=== PATIENT | female | born 2000 | race Caucasian/White ===

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

== ENCOUNTER 2019-05-09 22:28 | Emergency (ER) | payer BC ==
[2019-05-09 22:38] VITALS: RESP 18; TEMP 98.3
[2019-05-09] MEDS ORDERED: IPRATROPIUM-ALBUTEROL 3 ML NEB INHALATION STA (23:16)
--- NOTE | 2019-05-09 23:26 | ED ---
General Adult HPI - General Source: patient, RN notes reviewed Mode of arrival: ambulatory Limitations: no limitations <Johnny Corrales - Last Filed: 05/10/19 00:28> <Selina Ballard - Last Filed: 05/10/19 23:23> - General Chief complaint: Upper Respiratory Infection Stated complaint: Congested Time Seen by Provider: 05/09/19 22:56 - History of Present Illness Initial comments: 18-year-old female presents to the emergency department for a chief complaint of cough and soreness of breath. Patient had sinus congestion and cough yesterday. States that today the congestion has settled in her chest. States she feels like she cannot take a deep breath. She denies chest pain. admits to smoking marijuana, denies cigarette smoking. Denies history of asthma.Patient has no other complaints at this time including chest pain, abdominal pain, nausea or vomiting, headache, or visual changes. (Johnny Corrales) - Related Data Home Medications Medication Instructions Recorded Confirmed Cranberry Fruit Concentrate 450 mg PO DAILY 03/08/18 03/08/18 [Cranberry] Previous Rx's Medication Instructions Recorded Ondansetron Odt [Zofran ODT] 4 mg PO Q8HR PRN #10 tab 03/08/18 Promethazine 6.25MG/5Ml [Phenergan 5 ml PO Q4HR PRN #120 ml 03/08/18 Syrup] Albuterol Inhaler [Ventolin Hfa 1 - 2 puff INHALATION Q4-6H PRN #1 05/10/19 Inhaler] inhaler predniSONE 50 mg PO DAILY #5 tablet 05/10/19 Allergies Allergy/AdvReac Type Severity Reaction Status Date / Time No Known Allergies Allergy Verified 05/09/19 22:35 Review of Systems ROS Other: All systems not noted in ROS Statement are negative. <Johnny Corrales - Last Filed: 05/10/19 00:28> ROS Other: All systems not noted in ROS Statement are negative. <Selina Ballard - Last Filed: 05/10/19 23:23> ROS Statement: Those systems with pertinent positive or pertinent negative responses have been documented in the HPI. Past Medical History Past Medical History: No Reported History History of Any Multi-Drug Resistant Organisms: None Reported Past Surgical History: No Surgical Hx Reported Past Psychological History: No Psychological Hx Reported Smoking Status: Never smoker Past Alcohol Use History: None Reported Past Drug Use History: Marijuana <Johnny Corrales - Last Filed: 05/10/19 00:28> General Exam Limitations: no limitations General appearance: alert, in no apparent distress Head exam: Present: atraumatic, normocephalic, normal inspection Eye exam: Present: normal appearance, PERRL, EOMI. Absent: scleral icterus, conjunctival injection, periorbital swelling ENT exam: Present: normal exam, normal oropharynx, mucous membranes moist, normal external ear exam Neck exam: Present: normal inspection, full ROM. Absent: tenderness, meningismus, lymphadenopathy Respiratory exam: Present: wheezes (wheezing noted bilaterally throughout the lung louis). Absent: respiratory distress, rales, rhonchi, stridor, accessory muscle use Cardiovascular Exam: Present: regular rate, normal rhythm, normal heart sounds. Absent: systolic murmur, diastolic murmur, rubs, gallop, clicks GI/Abdominal exam: Present: soft, normal bowel sounds. Absent: distended, tenderness, guarding, rebound, rigid Neurological exam: Present: alert <Johnny Corrales - Last Filed: 05/10/19 00:28> Course Vital Signs 05/09/19 05/09/19 05/09/19 22:35 23:38 23:47 Temperature 98.3 F Pulse Rate 99 96 96 Respiratory 18 Rate Blood Pressure 103/70 O2 Sat by Pulse 98 Oximetry 05/10/19 05/10/19 05/10/19 00:23 00:32 00:52 Temperature Pulse Rate 107 H 107 H 95 Respiratory 18 Rate Blood Pressure 104/80 O2 Sat by Pulse 98 Oximetry Procedures - Smoking Cessation Time Spent Discussing Smoking Cessation w/Patient (Minutes): 3 Patient Acknowledges Need for Cessation: Yes <Johnny Corrales - Last Filed: 05/10/19 00:28> Medical Decision Making <Johnny Corrales - Last Filed: 05/10/19 00:28> <Selina Ballard - Last Filed: 05/10/19 23:23> - Medical Decision Making Patient presents for shortness of breath. Developed cough and sinus congestion yesterday. Vitals are stable. Patient is 98% on room air. She does have significant wheezing noted bilaterally. Denies chest pain. Urine was obtained to rule out which was negative. Chest x-ray shows a normal chest. She was given steroids and breathing treatment. DuoNeb did help with her symptoms, she was given another before discharge. She'll be discharged home with prednisone as well as inhaler. She will follow up with primary care in 1-2 days. Discussed return parameters with patient. (Johnny Corrales) I was available for consultation in the emergency department. The history and physical exam were done by the midlevel provider. I was consulted for this patients care. I reviewed the case with the midlevel provider and based on their presentation of the patient, I agree with the assessment, medical decision making and plan of care as documented. Chart was dictated using Mango-[employer]ate dictation software. Attempts were made to correct any dictation errors however some typographical errors may persist. (Selina Ballard) - Lab Data Lab Results 05/09/19 05/09/19 Range/Units 23:25 23:25 Urine Color Yellow Urine Appearance Clear (Clear) Urine pH 6.0 (5.0-8.0) Ur Specific [place] 1.033 (1.001-1.035) Urine Protein Trace H (Negative) Urine Glucose (UA) Negative (Negative) Urine Ketones Negative (Negative) Urine Blood Trace H (Negative) Urine Nitrite Negative (Negative) Urine Bilirubin Negative (Negative) Urine Urobilinogen 2.0 (<2.0) mg/dL Ur Leukocyte Esterase Trace H (Negative) Urine RBC 4 (0-5) /hpf Urine WBC 2 (0-5) /hpf Ur Squamous Epith Cells 2 (0-4) /hpf Urine Bacteria Rare H (None) /hpf Urine Mucus Moderate H (None) /hpf Urine HCG, Qual Not Detected (Not Detectd) Disposition Is patient prescribed a controlled substance at d/c from ED?: No Time of Disposition: 00:29 <Johnny Corrales - Last Filed: 05/10/19 00:28> <Selina Ballard - Last Filed: 05/10/19 23:23> Clinical Impression: Cough Disposition: HOME SELF-CARE Condition: Good Instructions (If sedation given, give patient instructions): Acute Cough (ED), Wheezing (ED) Additional Instructions: Take steroid as directed. Use inhaler as needed. follow-up with primary care in 1-2 days for recheck. If you have worsening symptoms or increased shortness of breath return to the emergency department. Prescriptions: predniSONE 50 mg PO DAILY #5 tablet Albuterol Inhaler [Ventolin Hfa Inhaler] 1 - 2 puff INHALATION Q4-6H PRN #1 inhaler PRN Reason: Shortness Of Breath Referrals: Alfonso Sy DO [Primary Care Provider] - 1-2 days
[2019-05-09 23:38] LABS: Appearance,Urine Clear (Clear); Bacteria,Urine Rare /hpf; Bilirubin,Urine Negative (Negative); Blood,Urine Trace (Negative); Color,Urine Yellow; Glucose,Urine (UA) Negative (Negative); Ketones,Urine Negative (Negative); Leukocyte Esterase,Urine Trace (Negative); Mucus,Urine Moderate /hpf; Nitrite,Urine Negative (Negative); Protein,Urine Trace (Negative); RBC,Urine 4 /hpf (0-5); Specific Gravity,Urine 1.033 (1.001-1.035); Squamous Epithelial Cell,Urine 2 /hpf (0-4); WBC,Urine 2 /hpf (0-5)
--- NOTE | 2019-05-09 23:46 | XR ---
EXAMINATION TYPE: XR chest 2V DATE OF EXAM: 05/09/2019 COMPARISON: 03/17/2017 HISTORY: Chest pain TECHNIQUE: 2 views FINDINGS: Heart and mediastinum are normal. Lungs are clear. Diaphragm is normal. Bony thorax appears normal. IMPRESSION: Normal chest. No change
[2019-05-10] MEDS ORDERED: methylPREDNISolone SOD SUCCI 125 MG/2 ML VIAL IM ONE (00:14)
[2019-05-10] MEDS ORDERED: IPRATROPIUM-ALBUTEROL 3 ML NEB INHALATION STA (00:17)
[2019-05-10 00:53] VITALS: BP 104/80; PULSE 95
== END 2019-05-10 00:53 | disposition home or self-care (01) ==
LOC: EC 22:28
DX: R05 Cough (principal); R09.81 Nasal congestion; R06.02 Shortness of breath; R06.2 Wheezing; F12.90 Cannabis use, unspecified, uncomplicated; Z71.6 Tobacco abuse counseling
CPT/HCPCS: 94640 ×2; 81001; 81025; 71046; 96372; 99284; J2930

== ENCOUNTER 2019-05-11 22:12 | Emergency (ER) | payer BC ==
[2019-05-11 22:25] VITALS: BP 129/60; TEMP 98.5
[2019-05-11] MEDS ORDERED: guaiFENesin 600 MG TABLET.ER PO STA (22:43)
[2019-05-11] MEDS ORDERED: IPRATROPIUM-ALBUTEROL 3 ML NEB INHALATION STA (22:43)
--- NOTE | 2019-05-11 22:53 | ED ---
General Adult HPI - General Chief complaint: Upper Respiratory Infection Stated complaint: Congested Time Seen by Provider: 05/11/19 22:31 Source: patient, RN notes reviewed Mode of arrival: ambulatory Limitations: no limitations - History of Present Illness Initial comments: 18-year-old female presents to the emergency department for recheck. Patient is complaining of cough for the past 3 or 4 days associated with SOB. She was seen here in the emergency department 2 days ago by myself. She did have significant wheezing at that time and had improvement after 2 DuoNeb's and steroids. Chest x-ray was negative for pneumonia. Patient states that she is progressively feeling better however her discharge paperwork said she needed to follow-up in one to 2 days. She cannot get into her doctor so went to [email or web address]. At [facility] she was told she needed to be seen in the emergency department due to wheezing. Patient states that upon arrival to the emergency department she feels fine. She was given a DuoNeb at the urgent care and she thinks that may have helped. She denies chest pain but does state her chest feels congested. Patient has no other complaints at this time including chest pain, abdominal pain, nausea or vomiting, headache, or visual changes. - Related Data Home Medications Medication Instructions Recorded Confirmed Cranberry Fruit Concentrate 450 mg PO DAILY 03/08/18 03/08/18 [Cranberry] Previous Rx's Medication Instructions Recorded Ondansetron Odt [Zofran ODT] 4 mg PO Q8HR PRN #10 tab 03/08/18 Promethazine 6.25MG/5Ml [Phenergan 5 ml PO Q4HR PRN #120 ml 03/08/18 Syrup] Albuterol Inhaler [Ventolin Hfa 1 - 2 puff INHALATION Q4-6H PRN #1 05/10/19 Inhaler] inhaler predniSONE 50 mg PO DAILY #5 tablet 05/10/19 Allergies Allergy/AdvReac Type Severity Reaction Status Date / Time No Known Allergies Allergy Verified 05/11/19 22:25 Review of Systems ROS Statement: Those systems with pertinent positive or pertinent negative responses have been documented in the HPI. ROS Other: All systems not noted in ROS Statement are negative. Past Medical History Past Medical History: No Reported History History of Any Multi-Drug Resistant Organisms: None Reported Past Surgical History: No Surgical Hx Reported Past Psychological History: No Psychological Hx Reported Smoking Status: Never smoker Past Alcohol Use History: None Reported Past Drug Use History: Marijuana General Exam Limitations: no limitations General appearance: alert, in no apparent distress Head exam: Present: atraumatic, normocephalic, normal inspection Eye exam: Present: normal appearance, PERRL, EOMI. Absent: scleral icterus, conjunctival injection, periorbital swelling ENT exam: Present: normal exam, mucous membranes moist Neck exam: Present: normal inspection, full ROM. Absent: tenderness, men ingismus, lymphadenopathy Respiratory exam: Present: wheezes (mild wheezing noted throughout lung louis). Absent: respiratory distress, rales, rhonchi, stridor, accessory muscle use Cardiovascular Exam: Present: regular rate, normal rhythm, normal heart sounds. Absent: systolic murmur, diastolic murmur, rubs, gallop, clicks Neurological exam: Present: alert Course Vital Signs 05/11/19 05/11/19 12 22:19 23:01 23:10 Temperature 98.5 F Pulse Rate 103 H 83 Respiratory 16 22 Rate Blood Pressure 129/60 O2 Sat by Pulse 99 Oximetry 05/11/19 23:21 Temperature Pulse Rate 93 Respiratory Rate Blood Pressure O2 Sat by Pulse Oximetry Medical Decision Making - Medical Decision Making patient is mildly tachycardic on presentation but did just receive albuterol tr eatment prior to arrival. Tachycardia likely secondary to treatment. She is 99% on room air. Lungs do show mild wheezing bilaterally however patient is not in any respiratory distress whatsoever. Patient was given another breathing treatment here in the emergency department which did improve her symptoms. he has been taking her steroids as directed. Patient feels her chest is still congested so will be started on Mucinex as well.She will follow up with primary care. she'll return here if he has any worsening symptoms. Disposition Clinical Impression: Cough Disposition: HOME SELF-CARE Condition: Good Instructions (If sedation given, give patient instructions): Acute Cough (ED), Wheezing (ED) Additional Instructions: Please continue steroids as directed. Use inhaler as needed. Follow-up with primary care when possible. return to the emergency department if you have any worsening symptoms. Is patient prescribed a controlled substance at d/c from ED?: No Referrals: Alfonso Sy DO [Primary Care Provider] - 1-2 days Time of Disposition: 23:49
[2019-05-11 23:04] VITALS: RESP 22
[2019-05-11 23:22] VITALS: PULSE 93
== END 2019-05-11 23:45 | disposition home or self-care (01) ==
LOC: EC 22:12
DX: R05 Cough (principal); R06.02 Shortness of breath; R09.89 Other specified symptoms and signs involving the circulatory and respiratory systems; R00.0 Tachycardia, unspecified; R06.2 Wheezing
CPT/HCPCS: 94640; 99283

== ENCOUNTER 2020-01-07 15:51 | Emergency (ER) | payer BC ==
[2020-01-07 16:12] VITALS: RESP 18
[2020-01-07] MEDS ORDERED: SODIUM CHLORIDE 0.9% 1,000 ML IV STA (16:13)
--- NOTE | 2020-01-07 16:38 | ED ---
Nausea/Vomiting/Diarrhea HPI - General Chief complaint: Nausea/Vomiting/Diarrhea Stated complaint: Vomiting Time Seen by Provider: 01/07/20 16:01 Source: patient Mode of arrival: ambulatory Limitations: no limitations - History of Present Illness Initial comments: Patient is a 19-year-old female presenting to the emergency room with a chief complaint of nausea vomiting diarrhea. Patient states about 3 weeks ago she has developed nausea vomiting diarrhea. Patient states the nausea and vomiting is usually the first thing when she wakes up which then subsides throughout the day. Patient states she is also having loose stools for around same time. She denies any abdominal pain except for a heartburn-like sensation when she is vomiting. Denies increased urgency frequency or dysuria. However, she does report a thick white discharge with a foul odor. Patient is not concerned for STDs although she is sexually active.. Denies any back pain chest pain shortness of breath. Denies any night sweats fevers or chills. Denies any coughing, rhinorrhea, otalgia or sore throat. Denies taking medication to alleviate the symptoms. States she is not . She does take oral contraceptives and typically has her menstrual period every 3 months. - Related Data Home Medications Medication Instructions Recorded Confirmed Cranberry Fruit Concentrate 450 mg PO DAILY 03/08/18 03/08/18 [Cranberry] Previous Rx's Medication Instructions Recorded Ondansetron Odt [Zofran ODT] 4 mg PO Q8HR PRN #10 tab 03/08/18 Promethazine 6.25MG/5Ml [Phenergan 5 ml PO Q4HR PRN #120 ml 03/08/18 Syrup] Albuterol Inhaler (Mhu) [Ventolin 1 - 2 puff INHALATION Q4-6H PRN #1 05/10/19 Hfa Inhaler (Mhu)] inhaler predniSONE 50 mg PO DAILY #5 tablet 05/10/19 Fluconazole [Diflucan] 150 mg PO ONCE #2 tab 01/07/20 Omeprazole [PriLOSEC] 20 mg PO AC-BRKFST #14 cap 01/07/20 metroNIDAZOLE [Flagyl] 500 mg PO BID #14 tab 01/07/20 Allergies Allergy/AdvReac Type Severity Reaction Status Date / Time No Known Allergies Allergy Verified 01/07/20 16:11 Review of Systems ROS Statement: Those systems with pertinent positive or pertinent negative responses have been documented in the HPI. ROS Other: All systems not noted in ROS Statement are negative. Past Medical History Past Medical History: No Reported History History of Any Multi-Drug Resistant Organisms: None Reported Past Surgical History: No Surgical Hx Reported Past Psychological History: No Psychological Hx Reported Smoking Status: Never smoker Past Alcohol Use History: None Reported Past Drug Use History: Marijuana General Exam Limitations: no limitations General appearance: alert, in no apparent distress Head exam: Present: atraumatic, normocephalic, normal inspection Eye exam: Present: normal appearance, PERRL, EOMI Pupils: Present: normal accommodation ENT exam: Present: normal exam, normal oropharynx Neck exam: Present: normal inspection, full ROM. Absent: tenderness Respiratory exam: Present: normal lung sounds bilaterally. Absent: respiratory distress, wheezes, rales Cardiovascular Exam: Present: regular rate, normal rhythm, normal heart sounds GI/Abdominal exam: Present: soft. Absent: distended, tenderness Extremities exam: Present: normal inspection, full ROM. Absent: tenderness Back exam: Present: normal inspection, full ROM. Absent: tenderness, CVA tenderness (R), CVA tenderness (L) Neurological exam: Present: alert, oriented X3 Psychiatric exam: Present: normal affect, normal mood Skin exam: Present: warm, dry, intact, normal color Course Vital Signs 01/07/20 01/07/20 01/07/20 16:02 17:12 17:58 Temperature 98.4 F 98.1 F Pulse Rate 89 80 79 Respiratory 18 18 18 Rate Blood Pressure 120/80 113/72 126/86 O2 Sat by Pulse 98 98 100 Oximetry Medical Decision Making - Medical Decision Making Patient is 19-year-old female presenting to the emergency room with chief complaint nausea vomiting diarrhea. Patient eats late at night and whenever she wakes up in the morning she has to vomit. She does have burning-like sensation in the throat whenever she wakes up in the morning. Advised the patient not to eat about 4-5 hours prior to going to bed and avoid any acidic foods and drinks. The patient's symptoms are consistent with GERD. Patient will be discharged with a 2 week course of omeprazole along with dietary changes. She was advised to follow with her primary care physician. Patient did also have complaints of white thick vaginal discharge with foul smell. She will be treated for bacterial vaginosis with Flagyl. Advised not to drink alcohol. I also gave the patient a prescription of Diflucan in case she develops a yeast infection. She declined pelvic examination. UA reveals elevated leukocyte esterase and white blood cells, however this appears to be contaminated sample. Urine culture pending. Patient does not have any urinary symptoms and will not be treated for UTI. Strict return parameters were thoroughly discussed the patient was understanding and agreeable. Case discussed with physician. - Lab Data Result diagrams: 01/07/20 16:34 01/07/20 16:34 Lab Results 01/07/20 01/07/20 01/07/20 Range/Units 16:34 16:34 16:34 WBC 9.9 (4.0-11.0) k/uL RBC 4.24 (3.80-5.40) m/uL Hgb 12.4 (11.4-16.0) gm/dL Hct 37.5 (34.0-46.0) % MCV 88.3 (80.0-100.0) fL MCH 29.3 (25.0-35.0) pg MCHC 33.2 (31.0-37.0) g/dL RDW 12.1 (11.5-15.5) % Plt Count 291 (150-450) k/uL Neutrophils % 59 % Lymphocytes % 31 % Monocytes % 5 % Eosinophils % 4 % Basophils % 0 % Neutrophils # 5.8 (1.3-7.7) k/uL Lymphocytes # 3.1 (1.0-4.8) k/uL Monocytes # 0.5 (0-1.0) k/uL Eosinophils # 0.4 (0-0.7) k/uL Basophils # 0.0 (0-0.2) k/uL Sodium 138 (137-145) mmol/L Potassium 4.1 (3.5-5.1) mmol/L Chloride 107 (98-107) mmol/L Carbon Dioxide 21 L (22-30) mmol/L Anion Gap 10 mmol/L BUN 7 (7-17) mg/dL Creatinine 0.80 (0.52-1.04) mg/dL Est GFR (CKD-EPI)AfAm >90 (>60 ml/min/1.73 sqM) Est GFR (CKD-EPI)NonAf >90 (>60 ml/min/1.73 sqM) Glucose 91 (74-99) mg/dL Calcium 9.6 (8.4-10.2) mg/dL Total Bilirubin 0.4 (0.2-1.3) mg/dL AST 19 (14-36) U/L ALT 12 (4-34) U/L Alkaline Phosphatase 76 (38-126) U/L Total Protein 7.7 (6.3-8.2) g/dL Albumin 4.7 (3.5-5.0) g/dL Urine Color [place] Urine Appearance Slightly Cloudy H (Clear) Urine pH 6.0 (5.0-8.0) Ur Specific Pease 1.030 (1.001-1.035) Urine Protein 1+ (Negative) Urine Glucose (UA) Negative (Negative) Urine Ketones Negative (Negative) Urine Blood Moderate H (Negative) Urine Nitrite Negative (Negative) Urine Bilirubin Negative (Negative) Urine Urobilinogen <2.0 (<2.0) mg/dL Ur Leukocyte Esterase Large (Negative) Urine RBC 4 (0-5) /hpf Urine WBC 39 H (0-5) /hpf Ur Squamous Epith Cells 36 H (0-4) /hpf Urine Bacteria Rare H (None) /hpf Urine Mucus Many H (None) /hpf Urine HCG, Qual (Not Detectd) 01/07/20 Range/Units 16:34 WBC (4.0-11.0) k/uL RBC (3.80-5.40) m/uL Hgb (11.4-16.0) gm/dL Hct (34.0-46.0) % MCV (80.0-100.0) fL MCH (25.0-35.0) pg MCHC (31.0-37.0) g/dL RDW (11.5-15.5) % Plt Count (150-450) k/uL Neutrophils % % Lymphocytes % % Monocytes % % Eosinophils % % Basophils % % Neutrophils # (1.3-7.7) k/uL Lymphocytes # (1.0-4.8) k/uL Monocytes # (0-1.0) k/uL Eosinophils # (0-0.7) k/uL Basophils # (0-0.2) k/uL Sodium (137-145) mmol/L Potassium (3.5-5.1) mmol/L Chloride (98-107) mmol/L Carbon Dioxide (22-30) mmol/L Anion Gap mmol/L BUN (7-17) mg/dL Creatinine (0.52-1.04) mg/dL Est GFR (CKD-EPI)AfAm (>60 ml/min/1.73 sqM) Est GFR (CKD-EPI)NonAf (>60 ml/min/1.73 sqM) Glucose (74-99) mg/dL Calcium (8.4-10.2) mg/dL Total Bilirubin (0.2-1.3) mg/dL AST (14-36) U/L ALT (4-34) U/L Alkaline Phosphatase (38-126) U/L Total Protein (6.3-8.2) g/dL Albumin (3.5-5.0) g/dL Urine Color Urine Appearance (Clear) Urine pH (5.0-8.0) Ur Specific Pease (1.001-1.035) Urine Protein (Negative) Urine Glucose (UA) (Negative) Urine Ketones (Negative) Urine Blood (Negative) Urine Nitrite (Negative) Urine Bilirubin (Negative) Urine Urobilinogen (<2.0) mg/dL Ur Leukocyte Esterase (Negative) Urine RBC (0-5) /hpf Urine WBC (0-5) /hpf Ur Squamous Epith Cells (0-4) /hpf Urine Bacteria (None) /hpf Urine Mucus (None) /hpf Urine HCG, Qual Not Detected (Not Detectd) Disposition Clinical Impression: Bacterial vaginosis, Nausea & vomiting Disposition: HOME SELF-CARE Condition: Stable Instructions (If sedation given, give patient instructions): Diet for Stomach Ulcers and Gastritis (ED), Gastroesophageal Reflux Disease (DC) Additional Instructions: Follow acid reflux diet instructions. Take prescribed medication as directed. Take fluconazole/Diflucan only if you develop a yeast infection. Follow-up with her primary care physician. Prescriptions: Fluconazole [Diflucan] 150 mg PO ONCE #2 tab metroNIDAZOLE [Flagyl] 500 mg PO BID #14 tab Omeprazole [PriLOSEC] 20 mg PO AC-BRKFST #14 cap Is patient prescribed a controlled substance at d/c from ED?: No Referrals: Alfonso Sy DO [Primary Care Provider] - 1-2 days Time of Disposition: 17:31
[2020-01-07 17:00] LABS: Basophils % (A) 0 %; Eosinophils # (A) 0.4 k/uL (0-0.7); Eosinophils % (A) 4 %; HCT 37.5 % (34.0-46.0); HGB 12.4 gm/dL (11.4-16.0); Lymphocytes # (A) 3.1 k/uL (1.0-4.8); Lymphocytes % (A) 31 %; MCH 29.3 pg (25.0-35.0); MCHC 33.2 g/dL (31.0-37.0); MCV 88.3 fL (80.0-100.0); Mean Platelet Volume 7.7; Monocytes # (A) 0.5 k/uL (0-1.0); Monocytes % (A) 5 %; Neutrophils # (A) 5.8 k/uL (1.3-7.7); Neutrophils % (A) 59 %; Platelet Count 291 k/uL (150-450); RBC 4.24 m/uL (3.80-5.40); RDW 12.1 % (11.5-15.5); WBC 9.9 k/uL (4.0-11.0)
[2020-01-07 17:05] LABS: Bacteria,Urine Rare /hpf; Mucus,Urine Many /hpf; RBC,Urine 4 /hpf (0-5); Squamous Epithelial Cell,Urine 36 /hpf (0-4); WBC,Urine 39 /hpf (0-5)
[2020-01-07 17:06] LABS: Appearance,Urine Slightly Cloudy (Clear); Color,Urine Amber
[2020-01-07] MEDS ORDERED: ONDANSETRON 4 MG/2 ML VIAL IVP STA (17:06)
[2020-01-07 17:07] LABS: Bilirubin,Urine Negative (Negative); Glucose,Urine (UA) Negative (Negative); Ketones,Urine Negative (Negative); Protein,Urine 1+ (Negative); Urobilinogen,Urine <2.0 mg/dL (<2.0)
[2020-01-07] MEDS ORDERED: PANTOPRAZOLE 40 MG/10 ML VIAL IVP STA (17:07)
[2020-01-07 17:08] LABS: Blood,Urine Moderate (Negative); Leukocyte Esterase,Urine Large (Negative); Nitrite,Urine Negative (Negative)
[2020-01-07 17:11] LABS: ALT 12 U/L (4-34); AST 19 U/L (14-36); African American GFR (CKD) >90 (>60 ml/min/1.73 sqM); Albumin 4.7 g/dL (3.5-5.0); Alkaline Phosphatase 76 U/L (38-126); Anion Gap 10 mmol/L; Blood Urea Nitrogen 7 mg/dL (7-17); Calcium 9.6 mg/dL (8.4-10.2); Carbon Dioxide 21 mmol/L (22-30); Chloride 107 mmol/L (98-107); Glucose 91 mg/dL (74-99); Non-African American GFR(CKD) >90 (>60 ml/min/1.73 sqM); Potassium 4.1 mmol/L (3.5-5.1); Sodium 138 mmol/L (137-145); Total Bilirubin 0.4 mg/dL (0.2-1.3); Total Protein 7.7 g/dL (6.3-8.2)
[2020-01-07 18:00] VITALS: BP 126/86; PULSE 79; TEMP 98.1
== END 2020-01-07 18:00 | disposition home or self-care (01) ==
LOC: EC 15:51
DX: N76.0 Acute vaginitis (principal); R19.7 Diarrhea, unspecified; R07.0 Pain in throat; R11.2 Nausea with vomiting, unspecified
CPT/HCPCS: 36415; 80053; 85025; 81001; 81025; 87086; 99284; 96374; 96361; C9113